=== PATIENT | female | born 1975 | race Caucasian/White ===

== ENCOUNTER 2016-09-03 16:10 | Emergency (ER) | payer BC ==
[~2016-09-03] VITALS: Ht 157.5 cm; Wt 61.2 kg
[2016-09-03 16:10] VITALS: BP 136/88; PULSE 81; RESP 19; TEMP 98.9; O2SAT 100
--- NOTE | 2016-09-03 16:10 | NUR ---
BROUGHT IN BY [facility] AND PLACED IN BED #6, REPORT GIVEN TO DEIRDRE
--- NOTE | 2016-09-03 16:11 | NUR ---
Pt brought to ED by ambulance for c/o SOB, feeling flushed, dizzy, denied syncopy, fingers tingling. Per EMR, pt was hyperventilating with sensation of tingling on her fingers at home today. Pt's BP is 136/88, HR 82, 100 % O2 sat. Pt denied any pain at moment, at bedside. Pt's respirations is even, unlabored, pt is noted to sit in bed calmly, denied SOB.
--- NOTE | 2016-09-03 16:12 | NUR ---
Dr. Mackenzie at bedside to assess pt.
[2016-09-03 17:22] LABS: BASOPHILS % (AUTO) 0.2 % (0.0-2.0); EOSINOPHILS % (AUTO) 0.4 % (0.0-4.0); HEMATOCRIT 37.7 % (36-48); HEMOGLOBIN 12.2 g/dL (12.0-16.0); LYMPHOCYTES # (AUTO) 1.9 K/uL (1.0-5.5); LYMPHOCYTES % (AUTO) 22.4 % (20.5-51.5); MEAN CORPUSCULAR HEMOGLOBIN 28 pg (27-31); MEAN CORPUSCULAR HGB CONC 32 % (32-36); MEAN CORPUSCULAR VOLUME 85 fL (79.0-98.0); MONOCYTES # (AUTO) 0.3 K/uL (0.0-1.0); MONOCYTES % (AUTO) 3.9 % (1.7-9.3); NEUTROPHILS # (AUTO) 6.2 K/uL (1.8-7.7); NEUTROPHILS % (AUTO) 73.1 % (40.0-70.0); PLATELET COUNT (AUTO) 290 K/uL (130-430); RED BLOOD CELL COUNT(AUTO) 4.41 MIL/uL (4.2-6.2); RED CELL DISTRIBUTION WIDTH 12.8 % (9.0-15.0); WHITE BLOOD COUNT (AUTO) 8.4 K/uL (4.8-10.8)
[2016-09-03 17:23] LABS: CREATININE 0.78 mg/dL (0.55-1.30); POTASSIUM 3.5 mmol/L (3.5-5.1)
[2016-09-03 17:32] LABS: TOTAL BILIRUBIN 0.5 mg/dL (0.0-1.0); TOTAL PROTEIN, SERUM 8.1 g/dL (6.4-8.3)
[2016-09-03 17:35] LABS: BILIRUBIN,URINE NEGATIVE (NEGATIVE); CLARITY/URINE CLEAR (CLEAR); GLUCOSE,URINE NEGATIVE (NEGATIVE); KETONES,URINE NEGATIVE (NEGATIVE); LEUKOCYTE ESTERASE ,URINE NEGATIVE (NEGATIVE); NITRITE, URINE NEGATIVE (NEGATIVE); PH,URINE 5.5 (5.0-8.0); PROTEIN URINE NEGATIVE (NEGATIVE); UROBILINOGEN,URINE 0.2 (0.2-1.0)
[2016-09-03 17:48] LABS: BLOOD, URINE TRACE (NEGATIVE); COLOR,URINE STRAW (YELLOW)
[2016-09-03 17:50] LABS: RBC,URINE 0-3 /HPF (0-3)
[2016-09-03 17:51] LABS: BACTERIA,URINE FEW /HPF (None Seen); MUCUS,URINE None Seen /LPF (None Seen); WBC,URINE 0-3 /HPF (0-3)
--- NOTE | 2016-09-03 19:25 | NUR ---
Patient given written and verbal discharge instructions and verbalizes understanding. ER MD discussed with patient the results and treatment provided. Patient in stable condition. ID arm band removed. Rx of Lorazepam PO given. Patient educated on pain management and to follow up with PMD. Opportunity for questions provided and answered.
[2016-09-03 19:57] VITALS: BP 121/78; PULSE 68; RESP 20; TEMP 100.1; O2SAT 100
== END 2016-09-03 19:25 | disposition home or self-care (01) ==
LOC: SED 16:10
DX: F41.9 Anxiety disorder, unspecified (principal); E86.0 Dehydration; Z88.6 Allergy status to analgesic agent; Z88.5 Allergy status to narcotic agent; Z98.890 Other specified postprocedural states
CPT/HCPCS: 36415; 80053; 81000-TC; 81025; 84484; 85025; 93005; 99285; J7030

== ENCOUNTER 2021-11-21 17:00 | Emergency (ER) | payer BC ==
[~2021-11-21] VITALS: Ht 157.5 cm; Wt 68.0 kg
[2021-11-21 17:15] VITALS: BP_SYST 128
[2021-11-21] MEDS ORDERED: DIPHENHYDRAMINE INJ 50 MG/ML VIAL IVP ONE (18:00)
[2021-11-21] MEDS ORDERED: METOCLOPRAMIDE HCL 10 MG/2 ML VIAL IVP ONE (18:00)
[2021-11-21 19:18] LABS: BASOPHILS % (AUTO) 0.2 % (0.0-2.0); HEMATOCRIT 33.4 % (36-48); HEMOGLOBIN 10.9 g/dL (12.0-16.0); LYMPHOCYTES # (AUTO) 1.1 K/uL (1.0-5.5); LYMPHOCYTES % (AUTO) 10.9 % (20.5-51.5); MEAN CORPUSCULAR HEMOGLOBIN 24 pg (27-31); MEAN CORPUSCULAR HGB CONC 33 % (32-36); MEAN CORPUSCULAR VOLUME 74 fL (79.0-98.0); MONOCYTES # (AUTO) 0.2 K/uL (0.0-1.0); MONOCYTES % (AUTO) 1.8 % (1.7-9.3); NEUTROPHILS # (AUTO) 8.6 K/uL (1.8-7.7); NEUTROPHILS % (AUTO) 87.1 % (40.0-70.0); PLATELET COUNT (AUTO) 384 K/uL (130-430); RED BLOOD CELL COUNT(AUTO) 4.49 MIL/uL (4.2-6.2); RED CELL DISTRIBUTION WIDTH 15.2 % (9.0-15.0); WHITE BLOOD COUNT (AUTO) 9.8 K/uL (4.8-10.8)
[2021-11-21 19:20] LABS: ACETONE, SERUM NEGATIVE (NEGATIVE)
[2021-11-21 19:23] LABS: ANION GAP 8 (5-15); CALCIUM 8.6 mg/dL (8.4-11.0); CHLORIDE 104 mmol/L (98-107); CREATININE 0.71 mg/dL (0.55-1.30); GLUCOSE 126 mg/dL (70-99); POTASSIUM 3.8 mmol/L (3.5-5.1); SODIUM SERUM 138 mmol/L (136-145); UREA NITROGEN, BLOOD 14 mg/dL (8-21)
--- NOTE | 2021-11-21 19:25 | NUR ---
Patient to [facility] for treatment
[2021-11-21 19:28] LABS: ALANINE AMINOTRANSFERASE 14 U/L (12-78); ALBUMIN 3.4 g/dL (3.4-4.8); ASPARTATE AMINOTRANSFERASE 20 U/L (10-37); C-REACTIVE PROTEIN QUANT < 0.2 mg/dL (0-0.5); TOTAL BILIRUBIN 0.2 mg/dL (0.0-1.0)
--- NOTE | 2021-11-21 20:00 | NUR ---
Pt in [facility] bed 1 at this time w/ c/o CHRISTIANSEN and light sensitivity plus N/V since this evening s/p exertion in heat. No vomiting at this time. MD at bedside. Normal skin color for ethnicity. Respirations even and unlabored. Bed in low position. Rails locked. Spouse at bedside.
[2021-11-21 20:01] LABS: ERYTHROCYTE SEDIMENTATION RATE 29 MM/HR (0-20)
--- NOTE | 2021-11-21 20:15 | NUR ---
# 22 gauge angiocath placed to left AC. Use of asceptic technique. Opsite placed over site. Blood return noted. Flushed with 10 cc of normal saline. No evidence of infiltration noted. Patient tolerated well.
[2021-11-21] MEDS ORDERED: IBUP-1969 PO (20:18)
[2021-11-21] MEDS ORDERED: HYDR-3917 PO (20:18)
--- NOTE | 2021-11-21 20:44 | NUR ---
Pt states "my nausea and headache have disappeared" s/p benadryl and reglan. MD Kline made aware.
--- NOTE | 2021-11-21 21:22 | NUR ---
Patient given written and verbal discharge instructions and verbalizes understanding. ER MD discussed with patient the results and treatment provided. Patient in stable condition. ID arm band removed. IV catheter removed intact and dressing applied, no active bleeding. Rx of Bivins given. Patient educated on pain management and to follow up with PMD. Pain Scale 0/10. Opportunity for questions provided and answered. Medication side effect fact sheet provided.
[2021-11-21 21:27] VITALS: BP_SYST 123
== END 2021-11-21 21:27 | disposition home or self-care (01) ==
LOC: SED 17:00
DX: R51.9 Headache, unspecified (principal); R11.2 Nausea with vomiting, unspecified; Z88.5 Allergy status to narcotic agent; Z88.6 Allergy status to analgesic agent; Z79.899 Other long term (current) drug therapy
CPT/HCPCS: 99285; 96374; 70450; 71045; 96375; 80053; 82009; 82550; 85025; 85651; 86140; 36415; 93005; 76376; 83605; J1200; J2765